=== PATIENT | female | born 1965 | race Caucasian/White ===

== ENCOUNTER 2019-05-22 17:04 | Emergency (ER) | payer OTHER ==
[2019-05-22] MEDS ORDERED: Sodium Chloride 0.9% 1000 ML 1,000 ML IV STA (17:26)
[2019-05-22] MEDS ORDERED: Sodium Chloride 0.9% 1000 ML 1,000 ML ONE (17:31)
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
[2019-05-22 18:03] LABS: Appearance SLIGHTLY CLOUDY (CLEAR); Bilirubin NEGATIVE (NEGATIVE); Blood NEGATIVE Ery/ul (0-5); Epithelial Cells RARE /HPF (FEW); Glucose NEGATIVE (NEGATIVE); Ketones NEGATIVE (NEGATIVE); Leukocyte Esterase SMALL (NEGATIVE); Nitrite NEGATIVE (NEGATIVE); Protein,Urine Dip NEGATIVE (Negative); Specific Gravity 1.016 (1.005-1.025); Urobilinogen NEGATIVE mg/dL (0-1)
[2019-05-22 18:04] LABS: WBC 0-2 /HPF (0-5)
[2019-05-22 18:04] LABS: Absolute Neutrophil Ct (ANC) 4.41 (1.4-6.9); BASOPHIL % 0.8 % (0.0-0.4); Basophil (Absolute #) 0.06 (0-0.4); Eosinophil (Absolute #) 0.39 (0-0.5); Hematocrit 36.9 % (35-47); Hemoglobin 12.3 gm/dl (12.0-16.0); Mean Cell Volume 93.4 fl (78-100); Mean Corpuscular Hemoglobin 31.1 pg (26-32); Mean Corpuscular Hgb Concent. 33.3 g/dl (32-36); Mean Platelet Volume 10.3 fl (6-9.5); Monocytes % 10.2 % (0.0-12.0); Platelet Count 322 K/mm3 (150-450); Red Blood Count 3.95 M/mm3 (4.1-5.4); Red Cell Distribution Width 12.3 % (11.5-14.0); White Blood Count 7.9 K/mm3 (4.0-10.5)
[2019-05-22 18:10] LABS: INR 1.1 (0.8-3.0); PROTIME 12.4 SECONDS (9.95-12.35)
[2019-05-22 18:15] LABS: ALBUMIN 3.9 g/dL (3.5-5.0); ALKALINE PHOSPHATASE 54 U/L (38-126); AMYLASE 66 U/L (30-110); ANION GAP 11.5 MEQ/L (5-15); BLOOD UREA NITROGEN 16 mg/dL (7-17); CHLORIDE 103 mmol/L (98-107); Calcium 9.2 mg/dL (8.4-10.2); Carbon Dioxide 30 mmol/L (22-30); Glucose 111 mg/dL (74-106); LIPASE 196 U/L (23-300); Potassium 3.6 mmol/L (3.5-5.1); SGOT/AST 28 U/L (14-36); SGPT/ALT 28 U/L (0-35); SODIUM 142 mmol/L (137-145); Total Protein 7.3 g/dL (6.3-8.2)
[2019-05-22 20:40] VITALS: BP 121/47; PULSE 64; O2SAT 97
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
== END 2019-05-22 20:44 | disposition home or self-care (01) ==
LOC: ED 17:04
DX: R42 Dizziness and giddiness (principal); R10.30 Lower abdominal pain, unspecified; I10 Essential (primary) hypertension; V89.2XXA Person injured in unspecified motor-vehicle accident, traffic, initial encounter
CPT/HCPCS: 36000; 36415; 70450; 72125; 74176; 80053; 81001; 82150; 83605; 83690; 85025; 85610; 96360; 99285